=== PATIENT | female | born 1965 | race Caucasian/White ===

== ENCOUNTER 2016-11-25 06:31 | Inpatient (IN) | payer MEDICARE ==
[2016-11-25] MEDS ORDERED: Haloperidol INJ IV/IM* 5 MG/ML AMP ONE (07:00)
[2016-11-25] MEDS ORDERED: diPHENhydraMINE IV* 50 MG/ML 1 ml VIAL (BENADRYL) ONE (07:00)
[2016-11-25] MEDS ORDERED: LORazepam INJ* 2 MG/ML 1 ML VIAL ONE (07:00)
[2016-11-25 09:39] LABS: Hematocrit 42 % (35-47); Hemoglobin 13.9 g/dl (12.0-16.0); Mean Corpuscular HGB Conc 33 g/dl (31-36); Mean Corpuscular Hemoglobin 30 pg (27-31); Mean Corpuscular Volume 91 fL (80-97); Mean Platelet Volume 8 um3 (7.4-10.4); Red Blood Count 4.59 10^6/ul (4.0-5.4); Red Cell Distribution Width 13 % (10.5-15); White Blood Count 4.5 10^3/ul (3.5-10.8)
[2016-11-25 09:49] LABS: ALT 18 U/L (7-52); AST 31 U/L (13-39); Albumin 4.1 g/dL (3.2-5.2); Alkaline Phosphatase 99 U/L (34-104); Anion Gap 5 mmol/L (2-11); BUN/Creatinine Ratio 25.4 (8-20); Blood Urea Nitrogen 18 mg/dL (6-24); CO2 Carbon Dioxide 27 mmol/L (22-32); Calcium 10.6 mg/dL (8.6-10.3); Chloride 105 mmol/L (101-111); EGFR African American 110.7 (>60); EGFR Non-African American 86.1 (>60); Globulin 2.9 g/dL (2-4); Glucose 91 mg/dL (70-100); Sodium 137 mmol/L (133-145)
[2016-11-25 10:12] LABS: Urine Bilirubin Negative (Negative); Urine Glucose Negative (Negative); Urine Nitrite Negative (Negative)
[2016-11-25 10:30] LABS: Benzodiazepine Urine Screen None Detected (None Detect)
[2016-11-25 10:39] LABS: Acetaminophen < 15 mcg/mL; Alcohol < 10 mg/dL (<10); Salicylate < 2.50 mg/dL (<30)
[2016-11-25 10:49] LABS: TSH (Thyroid Stimulating Horm) 2.49 mcIU/mL (0.34-5.60)
[2016-11-25] MEDS ORDERED: Al Hydrox/Mg Hydrox/Simet LIQ* 30 ML UDC PO PRN (11:15)
--- NOTE | 2016-11-25 18:22 | ED ---
Mitzi Leong Auryana, scribed for Deep Hoang MD on 11/25/16 at 1009 . Psychiatric Complaint - HPI Summary HPI Summary: 51 year old female presents with SI starting 1 month ago worse since today. She is states that " too many things coming together " is what aggravated her symptoms and brought her in today. - History Of Current Complaint Chief Complaint: EDMentalHealth Time Seen by Provider: 11/25/16 07:36 Hx Obtained From: Patient ?: No Onset/Duration: Gradual Onset, Lasting Weeks - 4, Still Present, Worse Since - this morning Timing: Constant Severity Initially: Mild Severity Currently: Mild Character: Angry - SI Aggravating Factor(s): Recent Stress - "too many things coming together" Related History: Positive For: Prior Psychiatric Issues - extensive PMHx of MH issues Has Suicidal: Reports: Thoughts Recent Stressor(s): see HPI - Allergies/Home Medications Allergies/Adverse Reactions: Allergies Allergy/AdvReac Type Severity Reaction Status Date / Time No Known Drug Allergy Allergy See Comment Verified 07/13/15 11:06 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 -(LAUREL Allergy Rash Uncoded 07/07/15 13:01 PLANT) PMH/Surg Hx/FS Hx/Imm Hx Endocrine/Hematology History: Reports: Hx Thyroid Disease - HYPOTHYROID Denies: Hx Diabetes, Hx Sickle Cell Disease Cardiovascular History: Denies: Other Cardiovascular Problems/Disorders Respiratory History: Denies: Other Respiratory Problems/Disorders History: Denies: Other Problems/Disorders Musculoskeletal History: Denies: Other Musculoskeletal History Sensory History: Reports: Hx Contacts or Glasses Denies: Hx Cataracts, Hx Glaucoma, Hx Hearing Aid Opthamlomology History: Reports: Hx Contacts or Glasses Denies: Hx Cataracts, Hx Glaucoma Neurological History: Reports: Other Neuro Impairments/Disorders - BIPOLAR DISORDER Psychiatric History: Reports: Hx Anxiety - ON LYRICA FOR, Hx Eating Disorder, Hx Depression, Hx Post Traumatic Stress Disorder, Hx Inpatient Treatment, Hx Community Mental Health Tx, Hx Suicide Attempt Denies: Hx of Violent Episodes Against Others - Cancer History Hx Chemotherapy: No Hx Radiation Therapy: No - Surgical History Surgery Procedure, Year, and Place: LEFT HAND SURGERY 15-20 YEARS AGO, [facility] Hx Anesthesia Reactions: No Infectious Disease History: No Infectious Disease History: Denies: Traveled Outside the [place] in Last 30 Days - Family History Known Family History: Positive: Cardiac Disease, Other - aneurysm - Social History Occupation: Disabled Lives: Alone Alcohol Use: None Substance Use Type: Reports: None Smoking Status (MU): Never Smoked Tobacco Review of Systems Constitutional: Negative Eyes: Negative ENT: Negative Cardiovascular: Negative Respiratory: Negative Gastrointestinal: Negative Genitourinary: Negative Musculoskeletal: Negative Skin: Negative Neurological: Negative Positive: Other - SI All Other Systems Reviewed And Are Negative: Yes Physical Exam - Summary Physical Exam Summary: VITAL SIGNS: Reviewed. GENERAL: Patient is a well-developed and nourished female who is lying comfortably, restrained in the stretcher. Patient is not in any acute respiratory distress. HEAD AND FACE: No signs of trauma. No ecchymosis, hematomas or skull depressions. No sinus tenderness. EYES: PERRLA, EOMI x 2, No injected conjunctiva, no nystagmus. EARS: Hearing grossly intact. Ear canals and tympanic membranes are within normal limits. MOUTH: Oropharynx within normal limits. NECK: Supple, trachea is midline, no adenopathy, no JVD, no carotid bruit, no c- spine tenderness, neck with full ROM. CHEST: Symmetric, no tenderness at palpation LUNGS: Clear to auscultation bilaterally. No wheezing or crackles. CVS: Regular rate and rhythm, S1 and S2 present, no murmurs or gallops appreciated. ABDOMEN: Soft, non-tender. No signs of distention. No rebound no guarding, and no masses palpated. Bowel sounds are normal. EXTREMITIES: FROM in all major joints, no edema, no cyanosis or clubbing. NEURO: Alert and oriented x 3. No acute neurological deficits. Speech is normal and follows commands. SKIN: Dry and warm IF PYSCHIATRIC/MENTAL HEALTH ADD THE FOLLOWING TO THE GENERAL NML EXAM: PSYCH: Depressed, quiet, and denies any suicidal thoughts or plan. She is drowsy - previous attendant gave B52. She answers questions appropriately. No homicidal thoughts or plan. No signs of psychosis or pressure speech. No tangential speech. Triage Information Reviewed: Yes Vital Signs On Initial Exam: Initial Vitals Temp Pulse Resp BP Pulse Ox 97.8 F 82 22 164/76 100 11/25/16 06:33 11/25/16 06:33 11/25/16 06:33 11/25/16 06:33 11/25/16 06:33 Vital Signs Reviewed: Yes - Genie Coma Scale Coma Scale Total: 15 Diagnostics - Vital Signs Vital Signs Temp Pulse Resp BP Pulse Ox 11/25/16 06:39 97.8 F 82 22 164/76 100 11/25/16 06:33 97.8 F 82 22 164/76 100 - Laboratory Lab Results: Lab Results 11/25/16 11/25/16 11/25/16 Range/Units 09:25 09:25 10:00 WBC 4.5 (3.5-10.8) 10^3/ul RBC 4.59 (4.0-5.4) 10^6/ul Hgb 13.9 (12.0-16.0) g/dl Hct 42 (35-47) % MCV 91 (80-97) fL MCH 30 (27-31) pg MCHC 33 (31-36) g/dl RDW 13 (10.5-15) % Plt Count 187 (150-450) 10^3/ul MPV 8 (7.4-10.4) um3 Neut % (Auto) 54.7 (38-83) % Lymph % (Auto) 35.9 (25-47) % [place] % (Auto) 7.8 (1-9) % Eos % (Auto) 0.6 (0-6) % Baso % (Auto) 1.0 (0-2) % Absolute Neuts (auto) 2.5 (1.5-7.7) 10^3/ul Absolute Lymphs (auto) 1.6 (1.0-4.8) 10^3/ul Absolute Monos (auto) 0.3 (0-0.8) 10^3/ul Absolute Eos (auto) 0 (0-0.6) 10^3/ul Absolute Basos (auto) 0 (0-0.2) 10^3/ul Absolute Nucleated RBC 0 10^3/ul Nucleated RBC % 0 Sodium 137 (133-145) mmol/L Potassium 4.0 (3.5-5.0) mmol/L Chloride 105 (101-111) mmol/L Carbon Dioxide 27 (22-32) mmol/L Anion Gap 5 (2-11) mmol/L BUN 18 (6-24) mg/dL Creatinine 0.71 (0.51-0.95) mg/dL Est GFR ( Amer) 110.7 (>60) Est GFR (Non-Af Amer) 86.1 (>60) BUN/Creatinine Ratio 25.4 H (8-20) Glucose 91 (70-100) mg/dL Calcium 10.6 H (8.6-10.3) mg/dL Total Bilirubin 0.50 (0.2-1.0) mg/dL AST 31 (13-39) U/L ALT 18 (7-52) U/L Alkaline Phosphatase 99 (34-104) U/L Total Protein 7.0 (6.4-8.9) g/dL Albumin 4.1 (3.2-5.2) g/dL Globulin 2.9 (2-4) g/dL Albumin/Globulin Ratio 1.4 (1-3) TSH 2.49 (0.34-5.60) mcIU/mL Urine Color Colorless Urine Appearance Clear Urine pH 7.0 (5-9) Ur Specific [place] 1.003 L (1.010-1.030) Urine Protein Negative (Negative) Urine Ketones Negative (Negative) Urine Blood Negative (Negative) Urine Nitrate Negative (Negative) Urine Bilirubin Negative (Negative) Urine Urobilinogen Negative (Negative) Ur Leukocyte Esterase Negative (Negative) Urine Glucose Negative (Negative) Salicylates < 2.50 (<30) mg/dL Urine Opiates Screen (None Detect) Acetaminophen < 15 mcg/mL Ur Barbiturates Screen (None Detect) Ur Phencyclidine Scrn (None Detect) Ur Amphetamines Screen (None Detect) U Benzodiazepines Scrn (None Detect) Urine Cocaine Screen (None Detect) U Cannabinoids Screen (None Detect) Serum Alcohol < 10 (<10) mg/dL 11/25/16 Range/Units 10:00 WBC (3.5-10.8) 10^3/ul RBC (4.0-5.4) 10^6/ul Hgb (12.0-16.0) g/dl Hct (35-47) % MCV (80-97) fL MCH (27-31) pg MCHC (31-36) g/dl RDW (10.5-15) % Plt Count (150-450) 10^3/ul MPV (7.4-10.4) um3 Neut % (Auto) (38-83) % Lymph % (Auto) (25-47) % [place] % (Auto) (1-9) % Eos % (Auto) (0-6) % Baso % (Auto) (0-2) % Absolute Neuts (auto) (1.5-7.7) 10^3/ul Absolute Lymphs (auto) (1.0-4.8) 10^3/ul Absolute Monos (auto) (0-0.8) 10^3/ul Absolute Eos (auto) (0-0.6) 10^3/ul Absolute Basos (auto) (0-0.2) 10^3/ul Absolute Nucleated RBC 10^3/ul Nucleated RBC % Sodium (133-145) mmol/L Potassium (3.5-5.0) mmol/L Chloride (101-111) mmol/L Carbon Dioxide (22-32) mmol/L Anion Gap (2-11) mmol/L BUN (6-24) mg/dL Creatinine (0.51-0.95) mg/dL Est GFR ( Amer) (>60) Est GFR (Non-Af Amer) (>60) BUN/Creatinine Ratio (8-20) Glucose (70-100) mg/dL Calcium (8.6-10.3) mg/dL Total Bilirubin (0.2-1.0) mg/dL AST (13-39) U/L ALT (7-52) U/L Alkaline Phosphatase (34-104) U/L Total Protein (6.4-8.9) g/dL Albumin (3.2-5.2) g/dL Globulin (2-4) g/dL Albumin/Globulin Ratio (1-3) TSH (0.34-5.60) mcIU/mL Urine Color Urine Appearance Urine pH (5-9) Ur Specific [place] (1.010-1.030) Urine Protein (Negative) Urine Ketones (Negative) Urine Blood (Negative) Urine Nitrate (Negative) Urine Bilirubin (Negative) Urine Urobilinogen (Negative) Ur Leukocyte Esterase (Negative) Urine Glucose (Negative) Salicylates (<30) mg/dL Urine Opiates Screen None detected (None Detect) Acetaminophen mcg/mL Ur Barbiturates Screen None detected (None Detect) Ur Phencyclidine Scrn None detected (None Detect) Ur Amphetamines Screen None detected (None Detect) U Benzodiazepines Scrn None detected (None Detect) Urine Cocaine Screen None detected (None Detect) U Cannabinoids Screen None detected (None Detect) Serum Alcohol (<10) mg/dL Result Diagrams: 11/25/16 09:25 11/25/16 09:25 Lab Statement: Any lab studies that have been ordered have been reviewed, and results considered in the medical decision making process. Course/Dx - Course Course Of Treatment: 51 year old female presents with SI starting 1 month ago worse since today. She is states that " too many things coming together " is what aggravated her symptoms and brought her in today. Assessment/Plan: Patient is medically clear 07:36. Patient is awaiting MHE. Dr. Chan from psychiatric evaluated patient and decided to admit the patient to his services for follow up. Dx: Mood d/o NOS. - Differential Dx/Clinical Impression Differential Diagnosis/HQI/PQRI: Positive: Depression, Suicidal Ideation Provider Diagnosis: modd disorder NOS Discharge - Discharge Plan Condition: Stable Disposition: ADMITTED TO [facility] The documentation as recorded by the Mitzi sanford Auryana accurately reflects the service I personally performed and the decisions made by me, Deep Hoang MD.
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
[2016-11-26] MEDS ORDERED: LORazepam TAB(*) 1 MG PO ONE (05:10)
[2016-11-26] MEDS ORDERED: Haloperidol TAB* 5 MG PO ONE (05:10)
[2016-11-26] MEDS ORDERED: LORazepam TAB(*) 1 MG ONE (05:17)
[2016-11-26] MEDS ORDERED: Haloperidol TAB* 5 MG ONE (05:17)
[2016-11-26] MEDS: Levothyroxine TAB* 50 MCG TAB PO SCH (05:47)
--- NOTE | 2016-11-26 08:54 | PN ---
Subjective - Subjective Service Type: 28831 Hosp care 15 min low complexity Subjective: Byron agreed to meet with me today, but within 2 minutes told me she did not want to talk anymore. I had just asked her if she was continuing to have thoughts of suicide. She replied that she did, and that there was nothing we could do to keep her safe here. Staff reports that she has been hitting her head and fists against the melchor last night, and the situation was managed by the on-call psychiatrist Dr Moon. Charge nurse Arnaud offered plan that if monitoring on 15 minute checks finds continued SIB or SI without CFS, 1:1 will be initiated. Objective - Appearance Appearance: Thin Framed Dysmorphic Features: No Hygiene: Normal Grooming: Disheveled - Behavior Psychomotor Activities: Normal Exhibits Abnormal Movement: No - Attitude and Relatedness Attitude and Relatedness: Minimally Cooperative Eye Contact: Fair - Speech Quality: Unpressured Latencies: Normal Quantity: Terse - Mood Patient's Decription of Mood: "Pretty shitty" - Affect Observed Affect: Depressed Affect Consistent with: Dysphoria - Thought Process Patient's Thought Process: Coherent, Goal Directed Thought Content: Yes Passive Wish, Yes Suicidal Planning, No Homicidal Ideation, No Paranoid Ideation - Sensorium Experiencing Hallucinations: No, Sensorium is Clear Type of Hallucinations: Visual: No, Auditory: No, Command: No - Level of Consciousness Level of Consciousness: Alert Orientation: Yes Intact, Yes Orientated to Time, Yes Orientated to Place, Yes Orientated to Person - Impulse Control Impulse Control: Impaired - Insight and Judgement Insight and Judgement: Poor - Group Participation Particating in Group Activities: No Group Participation Comments: but few offered yet in her admission - Medication Management Medication Management Adherence: Yes Assessment - Assessment Merits Inpatient Hospitalization: For Immediate Safety, For Stabilization, To Initiate Treatment, For Ongoing Evaluation, For Discharge Planning, Pending Safe DC Plan Inpatient DSM-IV Dx: Bipolar affective disorder, most recent episode depressed, following upon a recent episode of kyrie. Historical diagnoses of dissociative identity disorder, posttraumatic stress disorder, and borderline personality disorder, also anorexia nervosa. Clinical Impression: Day of admission, 11.25.17 Byron Duran is a 51-year-old woman known to the unit from multiple prior psychiatric admissions. She has had no hospitalization since July of 2015. She comes to us on this occasion with report of increased suicidal ideation from a baseline beginning about a month ago to the point of wanting to kill herself by cutting her wrists or by jumping off of a melody. She did have the means of cutting herself with a knife in her possession in the emergency department. She does have a history of severe negative therapeutic reactions on the unit, but thus far has been under good behavioral control. She has stopped all medications aside from levothyroxine. She asks about the possibility of restarting Lamictal and perhaps Latuda. She reports a history of adverse reactions to Seroquel, an alternative to Latuda that is on formulary. We will be encouraging her to make use of the therapeutic milieu and groups so long as her behavioral control is adequate for that. We will be gathering collateral from her primary care physician, Vi Prado, and from her therapist, Walter Walker. Aftercare is likely to be a return to care with Walter Walker and with perhaps referral to a psychiatric practitioner for monitoring restarted psychiatric medications, which at this time is lamotrigine. She says that it has been some months since she had a bad ending of her treatment relationship with Francy Magana MD of the eating disorders clinic in [place], [place], but this might also be referral that could be helpful for her. Day 2, 5.29.17 Byron hit melchor last evening with fists and head. Today she says she won't be safe here and there is nothing we can do for her. Staff is aware, and ready to implement constant observation or 1:1 monitoring if she again shows signs of self-injurious behavior or continues to say she cannot contract for safety here. I have added Thorazine 50 mg po q4H PRN agitation. She will be offered her first dose of Lamictal today. Plan - Plan Treatment Plan: Name: BYRON DURAN Birthdate: 1965 [id number] Monitor closely toward increasing level of observation per ongoing safety assessment by nursing staff. At time of composition of this sentence, I have been informed she was found attempting to hang herself with a string from a bracelet. Charge nurse Arnaud reports she was not injured and will now be on 1:1 observation for safety. Consider resuming lithium. Gather collateral. Continued Medication Management: Start Medication Medications: Current Medications Acetaminophen (Tylenol Tab*) 650 mg PO Q4H PRN PRN Reason: PAIN or TEMP > 101 F Al Hydrox/Mg Hydrox/Simethicone (Maalox Plus*) 30 ml PO Q4H PRN PRN Reason: INDIGESTION Levothyroxine Sodium (Synthroid Tab*) 50 mcg PO DAILY@0600 [facility] Last Admin: 11/26/16 05:47 Dose: 50 mcg Multivitamins (Theragran Tab*) 1 tab PO DAILY [facility] Start Lamictal 25 mg po daily today. Thorazine 50 mg po q4H prn agitaion added today. - Discharge Plan Discharge Plan: Outpatient Follow Up
[2016-11-26] MEDS ORDERED: Nicotine Inhaler* 10 MG AMP INH PRN (08:56)
[2016-11-26] MEDS ORDERED: chlorproMAZINE TAB* 50 MG PO PRN (08:58)
[2016-11-26] MEDS: Vitamin THERAPEUTIC TAB PO SCH (09:59)
[2016-11-26] MEDS: lamoTRIgine TAB(*) 25 MG PO SCH (09:59)
[2016-11-26] MEDS ORDERED: Mouth Piece, Nicotine* 1 EACH CARTRIDGE INH ONE (10:00)
[2016-11-26] MEDS: Acetaminophen TAB* 325 MG PO PRN ×2 (13:14→21:23)
[2016-11-26] MEDS ORDERED: hydrOXYzine HCL TAB* 50 MG ONE (19:54)
[2016-11-27] MEDS: Acetaminophen TAB* 325 MG PO PRN (04:33)
[2016-11-27] MEDS: Levothyroxine TAB* 50 MCG TAB PO SCH (05:43)
[2016-11-27] MEDS: hydrOXYzine HCL TAB* 50 MG PO PRN (05:43)
[2016-11-27] MEDS: lamoTRIgine TAB(*) 25 MG PO SCH (08:10)
[2016-11-27] MEDS: Vitamin THERAPEUTIC TAB PO SCH (08:10)
--- NOTE | 2016-11-27 12:11 | PN ---
Subjective - Subjective Service Type: 13314 Hosp care 15 min low complexity Subjective: Sonny reports absence of current emotional pain - feels "blah" and neutral. Denies anxiety, current anger, or agitation. Has no specific plans, but says suicide has been on her mind for a month: "I want out!!" She talked about her suicide attempt yesterday, says she wanted to - denies any residual physical symptoms following the strangulation attempt. She can't promise she will be safe and I don't ask her to. Rather I focused on the alliance, frankly talking about negotiating her needs, our role, potential benefits from being here on the unit, potential setbacks, expectations and shared goals. On visual inspection there are some linear areas of mild erythema on her neck on the right. Skin is intact. Objective - Appearance Appearance: Well Developed/Nourished Hygiene: Normal Grooming: Well Kept - Behavior Psychomotor Activities: Normal - Attitude and Relatedness Attitude and Relatedness: Superficially Cooperative Eye Contact: Good - Speech Quality: Unpressured Latencies: Normal Quantity: Appropriate - Mood Patient's Decription of Mood: "Okay" - Affect Observed Affect: Non-labile Affect Consistent with: Euthymia - Thought Process Patient's Thought Process: Coherent Thought Content: No Passive Wish, No Suicidal Planning, No Homicidal Ideation, No Paranoid Ideation - Sensorium Experiencing Hallucinations: No, Sensorium is Clear - Level of Consciousness Level of Consciousness: Alert - Impulse Control Impulse Control: Poor - Insight and Judgement Insight and Judgement: Poor Assessment - Assessment Merits Inpatient Hospitalization: For Immediate Safety, For Stabilization, To Initiate Treatment, For Ongoing Evaluation, Consolidate Improvements, For Discharge Planning Inpatient DSM-IV Dx: Mood disorder NOS. Borderline Personality disorder. Posttraumatic Stress Disorder. Anorexia nervosa Clinical Impression: 51 y/o female with history of multiple psychiatric admissions, chronic self injury, previous suicidal behavior, trauma, dissociative symptoms, PTSD, psychotic functioning, depression, Borderline Personality disorder, and consideration for Bipolar disorder. She was admitted after being brought to the hospital ED by ambulance due to concern over suicidal ideation and self harm behavior. She reported to staff a suicide attempt by overdose last month. Settled into the unit. Having an up and down course in terms of self harm and distress. Made a suicide attempt on the unit 11/26 by attempted strangulation. There is no evidence of significant harm or consequences. Today Sonny is calm, not in current emotional pain, conversant. It is possible that her suicidal behavior led to some spontaneous recovery. She is cooperative now, but her clinical alliances are expected to be very tenuous and unstable. Continues to report a subacute increase in suicidal ideation with ongoing desire to take her own life. Continues on 1:1 constant observation for safety - it will be reasonable to continue this until discharge because of the difficulty in predicting Sonny's behavior. Yield of hospitalization is expected to be limited to modify Sonny's condition, and she is at very high risk for negative therapeutic reactions and therapeutic and behavioral setbacks here. Medication mgt. starts Lamictal for mood stabilization. Plan - Plan Treatment Plan: Name: SONNY DUNAWAY Birthdate: 1965 [id number] Continued Medication Management: Start Medication Medications: Current Medications Acetaminophen (Tylenol Tab*) 650 mg PO Q4H PRN PRN Reason: PAIN or TEMP > 101 F Last Admin: 11/27/16 04:33 Dose: 650 mg Al Hydrox/Mg Hydrox/Simethicone (Maalox Plus*) 30 ml PO Q4H PRN PRN Reason: INDIGESTION Chlorpromazine HCl (Thorazine Tab*) 50 mg PO Q4H PRN PRN Reason: AGITATION Hydroxyzine HCl (Atarax Tab*) 50 mg PO Q6H PRN PRN Reason: ANXIETY/AGITATION Last Admin: 11/27/16 05:43 Dose: 50 mg Lamotrigine (Lamictal Tab(*)) 25 mg PO DAILY [facility] Last Admin: 11/27/16 08:10 Dose: 25 mg Levothyroxine Sodium (Synthroid Tab*) 50 mcg PO DAILY@0600 [facility] Last Admin: 11/27/16 05:43 Dose: 50 mcg Multivitamins (Theragran Tab*) 1 tab PO DAILY [facility] Last Admin: 11/27/16 08:10 Dose: 1 tab Nicotine (Nicotine Inhaler*) 10 mg INH Q2H PRN PRN Reason: CRAVING - Discharge Plan Discharge Plan: Outpatient Follow Up
[2016-11-27] MEDS ORDERED: Butalb/Acetamin/Caff TAB* 1 TAB PO PRN (13:17)
[2016-11-28] MEDS: hydrOXYzine HCL TAB* 50 MG PO PRN (00:47)
[2016-11-28] MEDS: Levothyroxine TAB* 50 MCG TAB PO SCH (05:33)
[2016-11-28] MEDS: lamoTRIgine TAB(*) 25 MG PO SCH (09:36)
[2016-11-28] MEDS: Vitamin THERAPEUTIC TAB PO SCH (09:37)
--- NOTE | 2016-11-28 10:09 | PN ---
Subjective - Subjective Service Type: 46957 Hosp care 15 min low complexity Subjective: Sonny reports "having a good day." She notes better mood, more optimism and absence of plans to harm self. Sees life as worth living "right now" but can't predict if things will change. She reframed our meeting from yesterday and said I made her "more confused" and she recalls the general sense of my interaction was "get the hell out of my office!!!" I modified my approach and rather that trying to build insight, used supportive methods - affirming Sonny's own coping strategies, setting clear limits. I also sought to put her more in control of planning her care. She denies side effects with Lamictal. We discussed goals for admission and aftercare planning. She reasonably asked to plan her release for Saturday. I set flexible expectations as to the possibility of setbacks. Objective - Appearance Appearance: Well Developed/Nourished Hygiene: Normal Grooming: Well Kept - Behavior Psychomotor Activities: Normal - Attitude and Relatedness Attitude and Relatedness: Superficially Cooperative Eye Contact: Good - Speech Quality: Unpressured Latencies: Normal Quantity: Appropriate - Mood Patient's Decription of Mood: "Okay" - Affect Observed Affect: Non-labile Affect Consistent with: Euthymia - brightens - Thought Process Patient's Thought Process: Coherent Thought Content: No Passive Wish, No Suicidal Planning, No Homicidal Ideation, No Paranoid Ideation - Sensorium Experiencing Hallucinations: No, Sensorium is Clear - Level of Consciousness Level of Consciousness: Alert - Impulse Control Impulse Control: Poor - Insight and Judgement Insight and Judgement: Poor Assessment - Assessment Merits Inpatient Hospitalization: To Initiate Treatment, For Ongoing Evaluation , Consolidate Improvements, For Discharge Planning Inpatient DSM-IV Dx: Mood disorder NOS. Borderline Personality disorder. Posttraumatic Stress Disorder. Anorexia nervosa Clinical Impression: 51 y/o female with history of multiple psychiatric admissions, chronic self injury, previous suicidal behavior, trauma, dissociative symptoms, PTSD, psychotic functioning, depression, Borderline Personality disorder, and consideration for Bipolar disorder. She was admitted after being brought to the hospital ED by ambulance due to concern over suicidal ideation and self harm behavior. She reported to staff a suicide attempt by overdose last month. Stabilized now. Has had 2 days with absence of active suicidal behavior, a calm and brighter demeanor, and improved subjective symptoms. Overnight she had night terror and disorganized behavior - this is background/ chronic and not target for acute modification. Sonny made a suicide attempt on the unit 11/26 by attempted strangulation. There was no evidence of significant harm or consequences. It is possible that her suicidal behavior led to some spontaneous recovery. While she is cooperative now, her clinical alliances are expected to be very tenuous and unstable. She is likely to interpret benign or neutral intervention as critical or hostile, and appears to have done that with our interaction. She will continues on 1:1 constant observation for safety until discharge because of the difficulty in predicting Sonny's behavior, and to eliminate a transaction around it and opportunity to self-sabotage. Yield of hospitalization is expected to be limited to modify Sonny's condition, and best practice is to keep admission brief. Goals of acute care, over last 2 days, are largely accomplished. It's reasonable to plan discharge for Saturday in keeping with Sonny's guidance. She is likely to engage in splitting between inpatient team and outpatient provider. She is at very high risk for negative therapeutic reactions and therapeutic and behavioral setbacks here, particularly if retained over her objection beyond a helpful period of care. Medication mgt. starts Lamictal for mood stabilization. Plan - Plan Treatment Plan: Name: SONNY DUNAWAY Birthdate: 1965 [id number] Continued Medication Management: Start Medication Medications: Current Medications Acetaminophen (Tylenol Tab*) 650 mg PO Q4H PRN PRN Reason: PAIN or TEMP > 101 F Last Admin: 11/27/16 04:33 Dose: 650 mg Acetaminophen/Butalbital/Caffeine (Fioricet Tab*) 1 tab PO Q4H PRN PRN Reason: HEADACHE Last Admin: 11/27/16 13:56 Dose: 1 tab Al Hydrox/Mg Hydrox/Simethicone (Maalox Plus*) 30 ml PO Q4H PRN PRN Reason: INDIGESTION Chlorpromazine HCl (Thorazine Tab*) 50 mg PO Q4H PRN PRN Reason: AGITATION Hydroxyzine HCl (Atarax Tab*) 50 mg PO Q6H PRN PRN Reason: ANXIETY/AGITATION Last Admin: 11/28/16 00:47 Dose: 50 mg Lamotrigine (Lamictal Tab(*)) 25 mg PO DAILY [facility] Last Admin: 11/28/16 09:36 Dose: 25 mg Levothyroxine Sodium (Synthroid Tab*) 50 mcg PO DAILY@0600 [facility] Last Admin: 11/28/16 05:33 Dose: 50 mcg Multivitamins (Theragran Tab*) 1 tab PO DAILY [facility] Last Admin: 11/28/16 09:37 Dose: 1 tab Nicotine (Nicotine Inhaler*) 10 mg INH Q2H PRN PRN Reason: CRAVING - Discharge Plan Discharge Plan: Outpatient Follow Up
[2016-11-29] MEDS: Levothyroxine TAB* 50 MCG TAB PO SCH (06:30)
[2016-11-29] MEDS: Vitamin THERAPEUTIC TAB PO SCH (08:31)
[2016-11-29] MEDS: lamoTRIgine TAB(*) 25 MG PO SCH (08:31)
--- NOTE | 2016-11-29 10:21 | PN ---
Subjective - Subjective Service Type: 34803 Hosp care 35 min high complexity Subjective: Sonny initially asked for immediate release home, but then revealed it was in anger b/a a peer said an inappropriate joke. After discussion she opted to stay with a tentative plan for her release tomorrow. She acknowledges doing better over the last several days. We reviewed medication experience on prior regimens (she said the only thing that helped was lithium, which harmed her kidneys). She eventually opted for an off label trial of Invega after hearing it's profile - the rationale was that titration would be immediate (vs. Lamictal-long ) and effect felt in the near term. I speculated that perhaps her methamphetamine use had had adverse health/mental effects. She readily acknowledged feedback, and agreed it be a focus of ongoing treatment. I spoke by phone with Walter Walker, Sonny's therapist. We discussed her superintendent terminal and subacute history in detail (30+ minutes), and reviewed diagnostic considerations for PTSD, Borderline personality, and Dissociative d.o. features. We were in complete alignment on her risk profile and on goals and expectation for acute care. We addressed apparent splitting behavior by Sonny. 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 We also talked about potential role of medication mgt - and he agreed with the idea of targeting impulsiveness. Objective - Appearance Appearance: Well Developed/Nourished Hygiene: Normal Grooming: Well Kept - Behavior Psychomotor Activities: Normal - Attitude and Relatedness Attitude and Relatedness: Superficially Cooperative Eye Contact: Good - Speech Quality: Unpressured Latencies: Normal Quantity: Appropriate - Mood Patient's Decription of Mood: "Okay" - Affect Observed Affect: Non-labile Affect Consistent with: Euthymia - Thought Process Patient's Thought Process: Coherent Thought Content: No Passive Wish, No Suicidal Planning, No Homicidal Ideation, No Paranoid Ideation - Sensorium Experiencing Hallucinations: No, Sensorium is Clear - Level of Consciousness Level of Consciousness: Alert - Impulse Control Impulse Control: Poor - Insight and Judgement Insight and Judgement: Poor Assessment - Assessment Merits Inpatient Hospitalization: To Initiate Treatment, For Ongoing Evaluation , Consolidate Improvements, For Discharge Planning Inpatient DSM-IV Dx: Mood disorder NOS. Borderline Personality disorder. Posttraumatic Stress Disorder. Amphetamine use disorder. Anorexia nervosa Clinical Impression: 51 y/o female with history of multiple psychiatric admissions, chronic self injury, previous suicidal behavior, trauma, substance abuse, dissociative symptoms, PTSD, psychotic functioning, depression, Borderline Personality disorder, and consideration for Bipolar disorder. She was admitted after being brought to the hospital ED by ambulance due to concern over suicidal ideation and self harm behavior. She reported to staff a suicide attempt by overdose last month, and recent use of crystal methamphetamine. Stabilized now. Sonny made a suicide attempt on the unit 11/26 by attempted strangulation. There was no evidence of significant harm or consequences. She has had 3 days since then with absence of active suicidal behavior, calm and brighter demeanor, and improved subjective symptoms. It is possible that her suicidal behavior led to some spontaneous recovery. She is superficially cooperative, but her clinical alliances are expected to be very tenuous and unstable. She will continue on constant observation for safety (does not need to be 1:1) until discharge because of the difficulty in predicting Sonny's behavior here. This will also eliminate a transaction around it (can neither "earn" special observation or "punish" us for not being careful) and opportunity for Sonny to self-sabotage. It does not mean she would need constant supervision outside this setting. It reflects the reality that at some times she may be likely to self harm because she is admitted here. Yield of hospitalization is expected to be limited to modify Sonny's condition, and best practice is to keep admission brief. Goals of acute care, over last 3 days, are largely accomplished. She is at very high risk for negative therapeutic reactions and therapeutic and behavioral setbacks here, particularly if retained over her objection beyond a helpful period of care. It's reasonable to plan discharge for Saturday in keeping with Sonny's guidance. She appears to have engaged in splitting between inpatient team and outpatient provider (based on my conversation with him). Medication mgt. started Lamictal for mood stabilization. She eventually opted to switch to Invega for more rapid (and probably robust) therapeutic effect - off label for impulsiveness/aggression. Plan - Plan Treatment Plan: Name: SONNY DUNAWAY Birthdate: 1965 [id number] Continued Medication Management: Start Medication Medications: Current Medications Acetaminophen (Tylenol Tab*) 650 mg PO Q4H PRN PRN Reason: PAIN or TEMP > 101 F Last Admin: 11/27/16 04:33 Dose: 650 mg Acetaminophen/Butalbital/Caffeine (Fioricet Tab*) 1 tab PO Q4H PRN PRN Reason: HEADACHE Last Admin: 11/27/16 13:56 Dose: 1 tab Al Hydrox/Mg Hydrox/Simethicone (Maalox Plus*) 30 ml PO Q4H PRN PRN Reason: INDIGESTION Chlorpromazine HCl (Thorazine Tab*) 50 mg PO Q4H PRN PRN Reason: AGITATION Hydroxyzine HCl (Atarax Tab*) 50 mg PO Q6H PRN PRN Reason: ANXIETY/AGITATION Last Admin: 11/28/16 00:47 Dose: 50 mg Lamotrigine (Lamictal Tab(*)) 25 mg PO DAILY [facility] Last Admin: 11/29/16 08:31 Dose: 25 mg Levothyroxine Sodium (Synthroid Tab*) 50 mcg PO DAILY@0600 [facility] Last Admin: 11/29/16 06:30 Dose: 50 mcg Multivitamins (Theragran Tab*) 1 tab PO DAILY [facility] Last Admin: 11/29/16 08:31 Dose: 1 tab Nicotine (Nicotine Inhaler*) 10 mg INH Q2H PRN PRN Reason: CRAVING - Discharge Plan Discharge Plan: Outpatient Follow Up Outpatient Program: Private Clinician(s)
[2016-11-29] MEDS ORDERED: Paliperidone TAB* 6 MG PO SCH (12:00)
[2016-11-29] MEDS: Acetaminophen TAB* 325 MG PO PRN ×2 (15:38→23:03)
[2016-11-29] MEDS ORDERED: Paliperidone TAB* 3 MG TAB PO SCH (21:00)
[2016-11-30] MEDS: hydrOXYzine HCL TAB* 50 MG PO PRN (01:35)
[2016-11-30] MEDS: Levothyroxine TAB* 50 MCG TAB PO SCH ×2 (06:23→08:52)
[2016-11-30] MEDS: Acetaminophen TAB* 325 MG PO PRN (07:25)
[2016-11-30 08:10] VITALS: BP 115/65
[2016-11-30 08:36] LABS: HDL Cholesterol 70.3 mg/dL
[2016-11-30] MEDS: Vitamin THERAPEUTIC TAB PO SCH (08:52)
--- NOTE | 2016-11-30 11:17 | DS ---
Subjective - Subjective Service Types: [id number] [facility] Day Mgmt simple under 30 min Discharge Date: 11/30/16 Subjective: Sonny denied setbacks and maintained her interest in going home today. She said her unit experience was "great" and she apologized for being disruptive. She noted sustained calm feeling and absence of emotional pain, improved ability to maintain her safety. She was forward thinking, appropriately interested in her own well being ( evidenced by her expressed interest and concern regarding use of Invega with any renal impairment). She denied side effects with Invega and opted to continue at 3mg. We discussed her Meth use. She acknowledges it probably deteriorated her mental wellness and contributed to her crisis. I used Motivation approaches and assessed her internal motivation for sobriety as intermediate. She agrees to make her use a subject of clinical focus. We reviewed aftercare plan. She said she sees no barriers to routine support and did see obstacles to seeking emergency care again if needed. Objective - Appearance Appearance: Well Developed/Nourished Hygiene: Normal Grooming: Fairly Well Kept - Behavior Psychomotor Activities: Normal - Attitude and Relatedness Attitude and Relatedness: Superficially Cooperative Eye Contact: Fair - Speech Quality: Unpressured Latencies: Normal Quantity: Appropriate - Mood Patient's Decription of Mood: "Fine" - Affect Observed Affect: Non-labile Affect Consistent with: Euthymia - Thought Process Patient's Thought Process: Coherent, Goal Directed Thought Content: No Passive Wish, No Suicidal Planning, No Homicidal Ideation, No Paranoid Ideation - Sensorium Experiencing Hallucinations: No, Sensorium is Clear - Level of Consciousness Level of Consciousness: Alert - Impulse Control Impulse Control: Poor - Insight and Judgement Insight and Judgement: Poor Treatment Course & Assessment Clinical Course & Impression: 51 y/o female with history of multiple psychiatric admissions, chronic self injury, previous suicidal behavior, trauma, substance abuse, dissociative symptoms, PTSD, psychotic functioning, depression, Borderline Personality disorder, and consideration for Bipolar disorder. She was admitted after being brought to the hospital ED by ambulance due to concern over suicidal ideation and self harm behavior. She reported to staff a suicide attempt by overdose last month, and recent use of crystal methamphetamine. 11/30/16 Clear for release. Sonny stabilized behaviorally in the unit, and attained significant clinical improvement. She made a suicide attempt on the unit 11/26 by attempted strangulation. There was no evidence of significant harm or consequences. She has had 4 days since then with absence of active suicidal behavior, calm and brighter demeanor, and improved subjective symptoms. It is possible that her suicidal behavior led to a spontaneous recovery. She has been superficially cooperative, but her clinical alliances are expected to be very tenuous and unstable. We maintained her on constant observation for safety (did not need to be 1:1) after her suicide attempt/gesture until discharge because of the difficulty in predicting Sonny's behavior here. This also eliminated a transaction around it ( could neither "earn" special observation or "punish" us for not being careful) and the opportunity for Sonny to self-sabotage. It does not mean she would need constant supervision outside this setting. It reflects the reality that at some times she may be more likely to self harm because she is the unit. Yield of hospitalization, after acute stabilization, is expected to be very limited to modify Sonny's condition, and best practice is to keep admission brief. Goals of acute care, over last 4 days, are fully accomplished. Sonny is at very high risk for negative therapeutic reactions and therapeutic and behavioral setbacks here, particularly if retained over her objection beyond a helpful period of care. Treatment team, outpatient therapist, and pt's partner supported the plan to release her when she expressed readiness. She appears to have engaged in some splitting between inpatient team and outpatient provider (based on my conversation with him 11/29). Medication initially mgt. started Lamictal for mood stabilization. Sonny eventually opted to switch to Invega for more rapid (and probably robust) therapeutic effect - off label for impulsiveness/aggression. Sonny is appropriate for outpatient care again. She is at high chronic risk for suicide or violence, and intentional or inadvertent harm, based on her prior behaviors and conditions. Current risk is assessed as acceptable for ambulatory status and is objectively reduced compared to earlier in her stay on the basis of her lower symptom burden and behavioral stabilization. Her condition is fluid, she is volatile, and her risk status can change rapidly with stress, or use of intoxicants. Clear for Discharge: Adequate Clinical Respons, Acceptable Safety Profile, Low Utility of Inpt Care Inpatient DSM-IV Dx: Mood disorder NOS. Borderline Personality disorder. Posttraumatic Stress Disorder. Amphetamine use disorder. Anorexia nervosa Discharge Planning - Discharge Planning Discharge Plan: Outpatient Follow Up Outpatient Program: Private Clinician(s) - and [facility] Recommendations for Continuing Care: Medication Management, Psychotherapy, Substance Abuse Counseling, Routine Metabolic Monitoring Medications: Current Medications Levothyroxine Sodium (Synthroid Tab*) 50 mcg PO DAILY@0600 [facility] Last Admin: 11/30/16 08:52 Dose: 50 mcg Multivitamins (Theragran Tab*) 1 tab PO DAILY [facility] Last Admin: 11/30/16 08:52 Dose: 1 tab Nicotine (Nicotine Inhaler*) 10 mg INH Q2H PRN PRN Reason: CRAVING Paliperidone (Invega Tab*) 3 mg PO 2100 [facility] Last Admin: 11/29/16 21:34 Dose: 3 mg Discharge Planning: Prescriptions provided for discharge [x] Yes Invega - 5 week supply due to delay in psychiatric intake Follow up care details as per social work arrangements. Patient response to discharge plan: [x] eager for discharge [] agreeable with discharge plan [] ambivalent about discharge [] disagrees with discharge today
== END 2016-11-30 13:00 | disposition home or self-care (01) | DRG 885 ==
LOC: ED 06:31 → BSU 10:43
PROVIDERS: ADMIT Psychiatry & Neurology Psychiatry; ATTEND Psychiatry & Neurology Psychiatry
DX: F39 Unspecified mood [affective] disorder (principal); F50.00 Anorexia nervosa, unspecified; Z91.5 Personal history of self-harm; F43.10 Post-traumatic stress disorder, unspecified; F60.3 Borderline personality disorder; Z56.0 Unemployment, unspecified; F44.81 Dissociative identity disorder; E03.9 Hypothyroidism, unspecified; G43.909 Migraine, unspecified, not intractable, without status migrainosus; F15.10 Other stimulant abuse, uncomplicated; Z62.810 Personal history of physical and sexual abuse in childhood; F31.9 Bipolar disorder, unspecified; Z88.8 Allergy status to other drugs, medicaments and biological substances; F41.9 Anxiety disorder, unspecified; R40.2412 Glasgow coma scale score 13-15, at arrival to emergency department; Z78.1 Physical restraint status
CPT/HCPCS: 36415; 80053; 80061; 80307; 80320; 80329; 81003; 84443; 85025; 99222; 99231; 99233; 99238; A9270-GY; G0480; J1200; J1630; J2060

== ENCOUNTER 2017-10-24 15:35 | Emergency (ER) | payer MEDICARE ==
[2017-10-24 16:52] LABS: ABS Basophils 0.1 10^3/ul (0-0.2); ABS Eosinophils 0 10^3/ul (0-0.6); ABS Lymphocytes 1.4 10^3/ul (1.0-4.8); ABS Monocytes 0.4 10^3/ul (0-0.8); ABS Neutrophils 3.7 10^3/ul (1.5-7.7); ABS Nucleated RBC 0 10^3/ul; Eosinophil % 0.7 % (0-6); Hematocrit 41 % (35-47); Lymphocyte % 25.3 % (25-47); Mean Corpuscular HGB Conc 34 g/dl (31-36); Mean Corpuscular Hemoglobin 31 pg (27-31); Mean Corpuscular Volume 91 fL (80-97); Mean Platelet Volume 7.3 um3 (7.4-10.4); Nucleated Red Blood Cells % 0; Platelet Count 213 10^3/ul (150-450); Red Blood Count 4.55 10^6/ul (4.0-5.4); Red Cell Distribution Width 13 % (10.5-15); White Blood Count 5.7 10^3/ul (3.5-10.8)
[2017-10-24 17:07] LABS: EGFR Non-African American 76.1 (>60)
--- NOTE | 2017-10-24 20:11 | ED ---
Jassi Leong Jennifer, scribed for Ricky Cerna MD on 10/24/17 at 1615 . Psychiatric Complaint - HPI Summary HPI Summary: The patient is a 51 year old female who was sent by her psychiatrist because she wants to . The patient has a history of attempted suicide. She denies drug or alcohol use. - History Of Current Complaint Chief Complaint: EDMentalHealth Time Seen by Provider: 10/24/17 16:00 Hx Obtained From: Patient Hx Last Menstrual Period: t Onset/Duration: Still Present Timing: Constant Severity Initially: Moderate Severity Currently: Moderate Character: Anxious Aggravating Factor(s): Nothing Alleviating Factor(s): Nothing Related History: Positive For: Prior Psychiatric Issues Has Suicidal: Reports: Thoughts, Has Prior Attempt(s) Has Homicidal: Denies: Thoughts, With A Plan - Allergies/Home Medications Allergies/Adverse Reactions: Allergies Allergy/AdvReac Type Severity Reaction Status Date / Time MS No Known Drug Allergy Allergy See Comment Verified 11/26/16 14:05 [No Known Drug Allergy] 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 -(LAUREL Allergy Rash Uncoded 11/26/16 14:05 PLANT) Home Medications: Home Medications Amphetamine MIXED SALTS TAB* [Adderall TAB*] 20 mg PO DAILY 10/24/17 [History Confirmed 10/24/17] Brexpiprazole (NF) [Rexulti (NF)] 2 mg PO BID 10/24/17 [History Confirmed ] Levothyroxine TAB* [Synthroid TAB*] 50 mcg PO DAILY 10/24/17 [History Confirmed 10/24/17] PMH/Surg Hx/FS Hx/Imm Hx Endocrine/Hematology History: Reports: Hx Thyroid Disease - HYPOTHYROID Denies: Hx Diabetes, Hx Sickle Cell Disease Cardiovascular History: Denies: Other Cardiovascular Problems/Disorders Respiratory History: Denies: Other Respiratory Problems/Disorders History: Denies: Other Problems/Disorders Musculoskeletal History: Denies: Other Musculoskeletal History Sensory History: Denies: Hx Cataracts, Hx Contacts or Glasses, Hx Glaucoma, Hx Hearing Aid Opthamlomology History: Denies: Hx Cataracts, Hx Contacts or Glasses, Hx Glaucoma Neurological History: Reports: Other Neuro Impairments/Disorders - BIPOLAR DISORDER Psychiatric History: Reports: Hx Anxiety - ON LYRICA FOR, Hx Eating Disorder, Hx Depression, Hx Post Traumatic Stress Disorder, Hx Inpatient Treatment, Hx Community Mental Health Tx, Hx Suicide Attempt Denies: Hx of Violent Episodes Against Others - Cancer History Hx Chemotherapy: No Hx Radiation Therapy: No - Surgical History Surgery Procedure, Year, and Place: LEFT HAND SURGERY 15-20 YEARS AGO, [facility] Hx Anesthesia Reactions: No Infectious Disease History: No Infectious Disease History: Denies: Traveled Outside the [place] in Last 30 Days - Family History Known Family History: Positive: Cardiac Disease, Other - aneurysm - Social History Alcohol Use: Rare Substance Use Type: Reports: Other Substance Use Comment - Amount & Last Used: Methamphetamie Smoking Status (MU): Unknown if Ever Smoked Length of Time of Smoking/Using Tobacco: pt has not smoked or used tobaccoo products in the lastr 30 days Review of Systems Negative: Fever Positive: Other - SI All Other Systems Reviewed And Are Negative: Yes Physical Exam - Summary Physical Exam Summary: General: well-appearing, no pain distress Skin: warm, color reflects adequate perfusion, dry Head: normal Eyes: EOMI, BEENA ENT: normal Neck: supple, nontender Respiratory: CTA, breath sounds present Cardiovascular: RRR Abdomen: soft, nontender Bowel: present Musculoskeletal: normal, strength/ROM intact Neurological: normal, sensory/motor intact, A&O x3 Psychological: affect/mood appropriate Triage Information Reviewed: Yes Vital Signs On Initial Exam: Initial Vitals Temp Pulse Resp BP Pulse Ox 97.2 F 76 16 142/85 100 10/24/17 15:38 10/24/17 15:38 10/24/17 15:38 10/24/17 15:38 10/24/17 15:38 Vital Signs Reviewed: Yes Diagnostics - Vital Signs Vital Signs Temp Pulse Resp BP Pulse Ox 10/24/17 15:38 97.2 F 76 16 142/85 100 - Laboratory Lab Results: Lab Results 10/24/17 10/24/17 Range/Units 16:37 16:37 WBC 5.7 (3.5-10.8) 10^3/ul RBC 4.55 (4.0-5.4) 10^6/ul Hgb 14.0 (12.0-16.0) g/dl Hct 41 (35-47) % MCV 91 (80-97) fL MCH 31 (27-31) pg MCHC 34 (31-36) g/dl RDW 13 (10.5-15) % Plt Count 213 (150-450) 10^3/ul MPV 7.3 L (7.4-10.4) um3 Neut % (Auto) 65.6 (38-83) % Lymph % (Auto) 25.3 (25-47) % Burt % (Auto) 7.4 H (0-7) % Eos % (Auto) 0.7 (0-6) % Baso % (Auto) 1.0 (0-2) % Absolute Neuts (auto) 3.7 (1.5-7.7) 10^3/ul Absolute Lymphs (auto) 1.4 (1.0-4.8) 10^3/ul Absolute Monos (auto) 0.4 (0-0.8) 10^3/ul Absolute Eos (auto) 0 (0-0.6) 10^3/ul Absolute Basos (auto) 0.1 (0-0.2) 10^3/ul Absolute Nucleated RBC 0 10^3/ul Nucleated RBC % 0 Sodium 139 (139-145) mmol/L Potassium 4.2 (3.5-5.0) mmol/L Chloride 103 (101-111) mmol/L Carbon Dioxide 30 (22-32) mmol/L Anion Gap 6 (2-11) mmol/L BUN 25 H (6-24) mg/dL Creatinine 0.79 (0.51-0.95) mg/dL Est GFR ( Amer) 97.9 (>60) Est GFR (Non-Af Amer) 76.1 (>60) BUN/Creatinine Ratio 31.6 H (8-20) Glucose 115 H (70-100) mg/dL Calcium 10.9 H (8.6-10.3) mg/dL Total Bilirubin 0.30 (0.2-1.0) mg/dL AST 22 (13-39) U/L ALT 14 (7-52) U/L Alkaline Phosphatase 116 H (34-104) U/L Total Protein 7.6 (6.4-8.9) g/dL Albumin 4.4 (3.2-5.2) g/dL Globulin 3.2 (2-4) g/dL Albumin/Globulin Ratio 1.4 (1-3) TSH 1.30 (0.34-5.60) mcIU/mL Salicylates < 2.50 (<30) mg/dL Acetaminophen < 15 mcg/mL Serum Alcohol < 10 (<10) mg/dL Result Diagrams: 10/24/17 16:37 10/24/17 16:37 Lab Statement: Any lab studies that have been ordered have been reviewed, and results considered in the medical decision making process. Course/Dx - Course Course Of Treatment: Medications reviewed. BP noted and advised to follow up with PCP. MHE AND DISPOSITION PENDING AT SHIFT CHANGE. SIGNED OUT TO DR LUCIANO. - Differential Dx/Clinical Impression Provider Diagnosis: Elevated BP without diagnosis of hypertension, Mental health problem Discharge - Sign-Out/Discharge Documenting (check all that apply): Sign-Out Patient Signing out patient TO: Sarabjit Luciano - Discharge Plan Condition: Stable [place] [place]errals: Francy Pickard MD [Primary Care Provider] - Additional Instructions: Your blood pressure was elevated during todays visit; please follow up with your primary care provider within a week for further evaluation. Follow up with your primary care physician in three days. Return to the emergency department for any new or worsening symptoms. - Billing Disposition and Condition Condition: STABLE [place] [facility] [place] The documentation as recorded by the Jassi sanford Jennifer accurately reflects the service I personally performed and the decisions made by , Ricky Cerna MD.
[2017-10-24] MEDS ORDERED: CMCS:Brexpiprazole (NF) 0.5 MG TAB PO SCH (21:00)
[2017-10-24 22:30] LABS: Urine Appearance Clear; Urine Blood 1+ (Negative); Urine Color Straw; Urine Ketones Negative (Negative); Urine Protein Negative (Negative); Urine Specific Gravity 1.011 (1.010-1.030); Urine Urobilinogen Negative (Negative)
[2017-10-25 03:14] VITALS: BP 124/73
--- NOTE | 2017-10-25 05:09 | ED ---
Abdi Leong Rebecca, scribed for Sarabjit Luciano MD on 10/25/17 at 0301 . Progress - Progress Note Progress Note: Pt was signed out by Dr. Cerna, pending dispo, awaiting MHE. Course/Dx - Course Course Of Treatment: Pt was signed out by Dr. Cerna, pending dispo, awaiting MHE. Upon completion of MHE and consultation with Dr. Shepard, it has been determined that the pt will be transferred to a different mental health facility. She will be getting transferred to [place] and the accepting physician is Dr. Deng who accepts the pt for transfer. - Diagnoses Provider Diagnoses: Elevated BP without diagnosis of hypertension, Borderline personality disorder , Mood disorder - Provider Notifications Discussed Care Of Patient With: Dr. Jamil Crum Time Discussed With Above Provider: 02:55 Instructed by Provider To: Other - Accepts pt for transfer Discharge - Sign-Out/Discharge Documenting (check all that apply): Discharge/Admit/Transfer - Transfer, Receiving Sign-Out Receiving patient FROM: Ricky Cerna - Discharge Plan Condition: Stable Disposition: PSYCHIATRIC FACILITY-OTHER Referrals: Francy Pickard MD [Primary Care Provider] - Additional Instructions: Your blood pressure was elevated during todays visit; please follow up with your primary care provider within a week for further evaluation. Follow up with your primary care physician in three days. Return to the emergency department for any new or worsening symptoms. - Billing Disposition and Condition Condition: STABLE Disposition: PSY-OT The documentation as recorded by the Abdi sanford Rebecca accurately reflects the service I personally performed and the decisions made by , Sarabjit Luciano MD.
== END 2017-10-25 05:15 ==
LOC: ED 15:35
DX: R03.0 Elevated blood-pressure reading, without diagnosis of hypertension (principal); F60.3 Borderline personality disorder; F39 Unspecified mood [affective] disorder; E03.9 Hypothyroidism, unspecified; F43.10 Post-traumatic stress disorder, unspecified
CPT/HCPCS: 36415; 80053; 80307; 80320; 80329; 81003; 81015; 84443; 85025; 87086; 93005; 99285; A9270-GY; G0480